=== PATIENT | female | born 2005 | race Caucasian/White ===

== ENCOUNTER 2023-12-03 14:28 | Emergency (ER) | payer OTHER, SELFPAY ==
--- NOTE | ~2023-12-03 | XR_ITS ---
XR abdomen/kub 1V DATE: 12/03/2023 16:02 INDICATION: Right lower quadrant abdominal pain TECHNIQUE: 2 supine AP views COMPARISON: None FINDINGS: The bowel gas pattern is nonspecific, without evidence of obstruction. The psoas shadows are intact. No visceromegaly is noted. No significant calcification is detected, with the exception of an approximately 2.8 mm long less raoul n 1 mm wide linear calcification overlying the right pelvis lateral to the sacrococcygeal junction; d istal right ureteral calcific calculus is not excluded. A few calcified small pelvic phleboliths are noted. IMPRESSION: Nonspecific abdomen Cannot exclude a subtle distal right ureteral small calcified calculus; clinical correlation is recom mended. Noncontrast CT abdomen pelvis may be helpful for confirmation or exclusion of any urinary tra ct calculi, if clinically indicated. Reviewed, dictated and finalized at [facility]. Reviewed, dictated and finalized at [facility]. IMPRESSION: Nonspecific abdomen Cannot exclude a subtle distal right ureteral small calcified calculus; clinica l correlation is recommended. Noncontrast CT abdomen pelvis may be helpful for confirmation or exclusion of any urinary tract calculi, if clinically indicated .
--- NOTE | ~2023-12-03 | US_ITS ---
US breast RT complete DATE: 12/03/2023 16:00 INDICATION: Right breast pain and erythema since 2 days ago TECHNIQUE: Real-time and color flow imaging of the right breast including all 4 quadrants and subareo lar area COMPARISON: None FINDINGS: No suspicious mass or shadowing, cysts or abnormal fluid collection is identified. IMPRESSION: No significant sonographic abnormality of the right breast; no evidence of right breast a bscess Reviewed, dictated and finalized at [facility]. Reviewed, dictated and finalized at [facility]. IMPRESSION: No significant sonographic abnormality of the right breast; no evid ence of right breast abscess
[2023-12-03 14:38] VITALS: BP 122/69; PULSE 60; RESP 16; TEMP 36.8; O2SAT 99
[2023-12-03 15:07] LABS: BEDSIDEPREGUCG Negative (Negative)
[2023-12-03 15:20] LABS: Add Urine Microscopic? YES; Appearance Urine Cloudy (Clear); Bacteria Urine Rare /hpf; Bilirubin Urine Negative (Negative); Blood Urine Negative (Negative); Color Urine Yellow (Yellow); Glucose Urine UA Negative (Negative); Ketones Urine Negative (Negative); Leukocyte Esterase Ur Trace LEU/UL (Negative); Nitrate Urine Negative (Negative); Non Pathogenic Casts 0-2; Protein Urine Negative (Negative); RBC Urine 0-2 /hpf (0-2); Specific Grav Ur 1.018 (1.001-1.035); Squamous Epithelial Cell Urine Moderate /hpf (Few); WBC Urine 0-5 /hpf (0-3)
[2023-12-03 15:28] VITALS: BP 126/84; PULSE 82; RESP 16; TEMP 36.8; O2SAT 100
[2023-12-03] MEDS: HYDROcodone/acetaminophen (*CRX) 5-325 MG TABLET 1 TAB PO ×2 (15:36→20:11)
[2023-12-03 16:29] VITALS: BP 118/64; PULSE 77; RESP 14; O2SAT 100
[2023-12-03 17:55] VITALS: BP 123/53; PULSE 66; RESP 16; O2SAT 99
--- NOTE | 2023-12-03 18:04 | ED.GENADULT ---
HPI - General Adult General Chief complaint: Unspecified Stated complaint: R breast pain/swelling Time Seen by Provider: 12/03/23 14:39 Source: patient and family Mode of arrival: ambulatory Limitations: no limitations History of Present Illness HPI narrative: Patient is a 18-year-old female who presents to the ER with complaints of right breast pain. She reports the pain started on Monday around 7:30 a.m. Patient reports she was seen at an urgent care and they started her on antibiotics yesterday. She rates the pain at a 6 to 7/10. She reports the redness has decreased since she started the antibiotic but the pain has not. Patient denies fever, shortness of breath, recent breast feeding, or previous breast ultrasounds or mammograms. She also endorses a cramp in her right lower quadrant. Patient reports she has a history of Crohn's disease and these cramps are common for her. She had a small bowel movement this morning. Related Data Allergies Allergy/AdvReac Type Severity Reaction Status Date / Time No Known Allergies Allergy Verified 12/03/23 14:40 Review of Systems Review of Systems: All systems reviewed & are unremarkable except as noted in HPI and below Exam Narrative: GENERAL: Well appearing, well-nourished, non-toxic, in no acute distress. NECK: Supple. No adenopathy, no masses. RESPIRATORY: Airway patent, respirations nonlabored. Clear to auscultation bilaterally, no rales, rhonchi, wheezing. CARDIOVASCULAR: Regular rate and rhythm without murmurs, rubs, or gallops. Peripheral pulses 2+ and equal bilaterally. ABDOMINAL: Soft, tender RLQ, nondistended, no hepatosplenomegaly. Normoactive BS. MUSCULOSKELETAL: Moves all extremities. Strength/ROM intact without gross deformities. SKIN: Warm, dry, normal color. R breast mildly red, very tender. No palpable abscess. NEURO: A&O X3. Speech clear. Cranial nerves II-XII grossly intact. Steady gait. No ataxic movements. PSYCHIATRIC: Appropriate mood and affect. Normal interaction. Course Vital Signs Vital signs: Vital Signs Temperature 36.8 C 12/03/23 14:38 Pulse Rate 60 12/03/23 14:38 Respiratory Rate 16 12/03/23 14:38 Blood Pressure 122/69 12/03/23 14:38 Pulse Oximetry 99 12/03/23 14:38 Temperature 36.7 C 12/03/23 19:30 Pulse Rate 75 12/03/23 19:30 Respiratory Rate 16 12/03/23 19:30 Blood Pressure 112/68 12/03/23 19:30 Pulse Oximetry 99 12/03/23 19:30 Medical Decision Making MDM Narrative Medical decision making narrative: Patient is a 18-year-old female who presents to the ER with complaints of right breast pain. She reports the pain started on Monday around 7:30 a.m. Patient reports she was seen at an urgent care and they started her on antibiotics yesterday. She rates the pain at a 6 to 7/10. She reports the redness has decreased since she started the antibiotic but the pain has not. Patient denies fever, shortness of breath, recent breast feeding, or previous breast ultrasounds or mammograms. She also endorses a cramp in her right lower quadrant. Patient reports she has a history of Crohn's disease and these cramps are common for her. She had a small bowel movement this morning. Patient's abdominal x-ray represents she may have a small kidney stone, but she is asymptomatic and has no blood in her urine, so no further workup will be done at this time. Patient's breast ultrasound was unremarkable. Will advise patient to continue on her antibiotics and follow-up with her PCP as needed. Differential Diagnosis Differential Diagnosis: Breast abscess, breast reduction, breast cancer Vital Signs Vital Signs: Vital Signs Temperature 36.8 C 12/03/23 14:38 Pulse Rate 60 12/03/23 14:38 Respiratory Rate 16 12/03/23 14:38 Blood Pressure 122/69 12/03/23 14:38 Pulse Oximetry 99 12/03/23 14:38 Temperature 36.7 C 12/03/23 19:30 Pulse Rate 75 12/03/23 19:30 Respiratory Rate 16
[2023-12-03 19:30] VITALS: BP 112/68; PULSE 75; RESP 16; TEMP 36.7; O2SAT 99
[2023-12-03 20:08] VITALS: BP 122/83; PULSE 88; RESP 16; TEMP 36.7; O2SAT 100
== END 2023-12-03 20:12 | disposition home or self-care (01) ==
PROVIDERS: Emergency Provider Registered Nurse
DX: N61.0 Mastitis without abscess (principal); R93.41 Abnormal radiologic findings on diagnostic imaging of renal pelvis, ureter, or bladder
CPT/HCPCS: 74018; 76641; 81001; 81025; 99284; A9270